=== PATIENT | female | born 1960 | race Caucasian/White ===

== ENCOUNTER 2022-10-10 08:45 | Outpatient (RCR) | payer BC, SELFPAY | END 2022-12-10 10:16 | disposition home or self-care (01) | PROVIDERS: PCP Family Medicine; Visit Provider Family Medicine | DX: M25.551 Pain in right hip (principal); M25.552 Pain in left hip; M47.818 Spondylosis without myelopathy or radiculopathy, sacral and sacrococcygeal region; M70.61 Trochanteric bursitis, right hip; M70.62 Trochanteric bursitis, left hip; G47.9 Sleep disorder, unspecified; M62.81 Muscle weakness (generalized); Z51.89 Encounter for other specified aftercare | CPT/HCPCS: 97110; 97161; 97530; 97535 ==